=== PATIENT | male | born 1960 | race African-American/Black ===

== ENCOUNTER 2023-03-29 06:35 | Emergency (ER) | payer MEDICAID ==
[~2023-03-29] VITALS: Ht 182.9 cm; Wt 113.6 kg
[2023-03-29] MEDS ORDERED: LORazepam 2MG/ML-1ML VIAL IV ONE (06:45)
[2023-03-29] MEDS ORDERED: THIAMINE 100mg/ml INJ (200mg/2ml VIAL) IV ONE (06:45)
[2023-03-29] MEDS ORDERED: SODIUM CHLORIDE 0.9% 1,000 ML IV ONE (06:45)
[2023-03-29 06:47] VITALS: BP 145/79; PULSE 113; RESP 20; O2SAT 95
[2023-03-29] MEDS ORDERED: CHL10C PO (07:37)
== END 2023-03-29 13:53 | disposition left against medical advice (07) ==
LOC: ER 06:35
DX: F10.10 Alcohol abuse, uncomplicated (principal); E11.9 Type 2 diabetes mellitus without complications; I10 Essential (primary) hypertension
CPT/HCPCS: 36415; 80320